=== PATIENT | male | born 1945 | race Caucasian/White ===

== ENCOUNTER → 2018-01-31 | Outpatient (CLI) | payer MEDICARE, BC | END | disposition home or self-care (01) | LOC: PCVCCLINIC 15:29 | DX: I10 Essential (primary) hypertension (principal); K21.9 Gastro-esophageal reflux disease without esophagitis; R00.2 Palpitations; Z87.891 Personal history of nicotine dependence | CPT/HCPCS: 80061; 93005; G0463 ==

== ENCOUNTER → 2018-02-21 | Outpatient (CLI) | payer MEDICARE, BC | END | disposition home or self-care (01) | LOC: PCVCIMAG 11:14 | DX: I10 Essential (primary) hypertension (principal); R00.2 Palpitations | CPT/HCPCS: 93325; 93351 ==

== ENCOUNTER 2020-02-13 15:19 | Emergency (ER) | payer BC, MEDICARE ==
[~2020-02-13] VITALS: Ht 170.2 cm; Wt 70.4 kg
[2020-02-13 15:40] VITALS: BP 203/113
--- NOTE | 2020-02-13 16:58 | RAD ---
Three-view right shoulder study Clinical indications: Right shoulder injury and pain FINDINGS: No acute fracture or dislocation or lytic process is evident. No AC joint separation is seen. IMPRESSION: No acute fracture. Electronically signed by: Gurwinder Matamoros MD (02/13/2020 4:55 PM) [id number]
--- NOTE | 2020-02-13 17:19 | RAD ---
EXAM: CT Cervical Spine without IV contrast INDICATION: Reason: trauma-FALL FROM LADDER 2 WKS AGO PAIN L SHOULDER PREV INJURY-SPASMS TODAY / Spl. Instructions: / History: TECHNIQUE: Multi-detector row CT images were obtained through the cervical spine without the use of IV contrast. Post-processing sagittal and coronal reconstructed images were obtained for interpretation. All CT scans performed at this facility utilize dose optimization techniques as appropriate to the exam, including the following: Automated exposure control and adjustment of the mA and/or KV according to patient size (this includes techniques or standardized protocols for targeted exams where dose is indication/reason for exam). COMPARISON: None FINDINGS: CRANIOCERVICAL JUNCTION: Unremarkable. ALIGNMENT: Subtle retrolisthesis of C3 on C4 and anterolisthesis of C7 on T1, each of approximately 1 to 2 mm. OSSEOUS: No evidence of fracture or bone destruction. DISC SPACES: Multilevel disc degenerative change with narrowing at multiple levels, most notably C6-C7, C5-C6 and C3-C4. FACET JOINTS: Minimal facet degenerative change, most notably at the left C7-T1 level. No jumped facets or facet fractures. SPINAL CANAL: Unremarkable. NEUROFORAMINA: Unremarkable. SOFT TISSUES: Bilateral carotid calcifications. IMPRESSION: C-spine degenerative changes. No acute traumatic findings. Electronically signed by: Ankit Petit MD (02/13/2020 5:16 PM) [facility] [place]
--- NOTE | 2020-02-13 17:37 | PHYS DOC ---
Past Medical History Past Medical History: Cancer, Hypertension, P.U.D., Other Additional Past Medical Histor: BLADDER CA,HAITAL HERNIA Past Surgical History: Other Additional Past Surgical Histo: BLADDER MASS REMOVED,R SHOULDER/L HAND Smoking Status: Former Smoker Alcohol Use: Occasionally General Adult EDM: Chief Complaint: Neck Pain HPI: HPI: Patient is a 74 year old male presenting to the ED with a chief complaint of right shoulder pain and neck pain. Patient states that he had a fall 2 weeks ago when he fell onto his back but thinks that he may have injured his shoulder and neck on impact. Patient states that he called his PCP and was given muscle relaxers yesterday. Patient states that the muscle relaxers helped him at all today but the pain comes in spasms. Patient denies midline cervical tenderness. Review of Systems: Review of Systems: Constitutional: Denies fever or chills. [] Eyes: Denies change in visual acuity. [] HENT: Complains of paraspinal muscle tenderness Respiratory: Denies cough or shortness of breath. [] Cardiovascular: Denies chest pain or edema. [] GI: Denies abdominal pain, nausea, vomiting, bloody stools or diarrhea. [] : Denies dysuria. [] Musculoskeletal: Complains of right shoulder tenderness Integument: Denies rash. [] Neurologic: Denies headache, focal weakness or sensory changes. [] Heart Score: Risk Factors: Risk Factors: DM, Current or recent (<one month) smoker, HTN, HLP, family history of CAD, obesity. Risk Scores: Score 0 - 3: 2.5% MACE over next 6 weeks - Discharge Home Score 4 - 6: 20.3% MACE over next 6 weeks - Admit for Clinical Observation Score 7 - 10: 72.7% MACE over next 6 weeks - Early Invasive Strategies Allergies: Allergies: Allergies Coded Allergies Type Severity Reaction Last Updated Verified No Known Drug Allergies 02/13/20 No Physical Exam: PE: Constitutional: Well developed, well nourished, no acute distress, non-toxic appearance. [] HENT: Normocephalic, atraumatic Eyes: EOMI Neck: Normal range of motion, Supple, no midline tenderness. Patient has franky ateral paraspinal cervical tenderness. Cardiovascular:Heart rate regular rhythm Lungs & Thorax: Bilateral breath sounds clear to auscultation [] Abdomen: Bowel sounds normal, soft, no tenderness Extremities: Mild tenderness to the right shoulder. ROM intact Neurologic: Alert and oriented X 3 Current Patient Data: Vital Signs: Vital Signs Date Time Temp Pulse Resp B/P (MAP) Pulse Ox O2 Delivery O2 Flow Rate FiO2 02/13/20 15:40 98.2 87 17 203/113 (143) 94 Room Air 98.2 EKG: EKG: [] Radiology/Procedures: Radiology/Procedures: [] Impression: CT C-spine does not show any acute fractures. X-ray of the right shoulder does not show any acute fractures. Course & Med Decision Making: Course & Med Decision Making Pertinent Imaging studies reviewed. (See chart for details) CT neck and x-ray of the right shoulder did not show any acute fractures. Patient already has medication at home. Patient will be discharged home for outpatient follow-up. Discussed results and plan of care with patient. Patient is instructed to follow up with PCP in one to 2 days. Appropriate discharge instructions given to patient to return to the ED or to seek immediate medical evaluation. Patient is instructed to return to the ED if symptoms worsen or if any concerns. Dragon Disclaimer: Dragon Disclaimer: This electronic medical record was generated, in whole or in part, using a voice recognition dictation system. Departure Departure Impression: Primary Impression: Cervical strain Additional Impression: Right shoulder strain Disposition: 01 HOME, SELF-CARE Condition: STABLE Referrals: STEPHON RUSH DO (PCP) Patient Instructions: Soft Tissue Injury of the Neck Additional Instructions: Please return to the ED if symptoms worsen or if any concerns. SONIA YUNG DO February 13, 2020 17:37
== END 2020-02-13 17:44 | disposition home or self-care (01) ==
LOC: ER 15:19
DX: S16.1XXA Strain of muscle, fascia and tendon at neck level, initial encounter (principal); S46.911A Strain of unspecified muscle, fascia and tendon at shoulder and upper arm level, right arm, initial encounter; I10 Essential (primary) hypertension; Z87.891 Personal history of nicotine dependence; W11.XXXA Fall on and from ladder, initial encounter; Y93.89 Activity, other specified; Y92.89 Other specified places as the place of occurrence of the external cause; Y99.8 Other external cause status
CPT/HCPCS: 72125; 73030; 99284-25